=== PATIENT | male | born 1960 | race Caucasian/White ===

== ENCOUNTER → 2019-03-02 | Outpatient (CLI) | payer OTHER ==
[~2019-03-02] VITALS: Ht 177.8 cm; Wt 90.7 kg
[~2019-03-02] MED LIST: ALL DAY ALLERGY10 M3 PO; ASA81BEC PO; CINNAMON500 MG PO; GLUCOSAMINE &1 EACH PO; MILLTRIUM SENI1 EACH PO; OMEPRAZOLE 20 M20 M1 PO; ZESTRIL40 MG PO
--- NOTE | 2019-03-03 14:06 | PATH ---
[facility] [place] [address] PATHOLOGY RPT PROCEDURE Name: ARIANNE ROWELL Room #: REG NAOMIE Dung.#: [id number] Admission: 03/02/19 Date of : 60 Discharge: Report #: [id number] Path Case #: [id number] [facility] Accession Number: [id number] . 01 Material submitted: . PART A: stomach - BIOPSY OF GASTRITIS TO R/O H. PYLORI PART B: esophagus - BIOPSY OF DISTAL ESOPHAGUS TO R/O ALLEN'S. Modifiers: distal . 01 Clinical history: . Pre-OP DX: Reflux, Hx of Allen's Post-OP DX: Hiatal hernia, gastritis, questionable Allen's . 02 Diagnosis: A. Gastric mucosa, gastritis to rule out H. pylori, endoscopic biopsy: - Mild reactive gastropathy. - Negative for intestinal metaplasia or atrophy. - Negative for Helicobacter pylori (properly-controlled immunohistochemical stain performed). . B. Gastroesophageal mucosa, distal esophagus to rule out Allen's, endoscopic biopsy: - Gastric cardia mucosa with mild chronic inflammation. - Negative for intestinal metaplasia or dysplasia. - Squamous mucosa showing mild esophagitis. . (IUV:mml; 03/03/2019) QLM 03/03/2019 1018 Local . 02 Electronically signed: . Kelly Echevarria MD, Pathologist NPI- [id number] . 01 Gross description: . A. Received in formalin labeled "Arianne Rowell BX of gastritis to rule out H. pylori," are 4 segments of mcgrath soft tissue measuring 1.3 x 0.6 x 0.2 cm in aggregate dimensions and ranging from 0.3 to 0.7 cm in maximum dimension. The specimen is submitted entirely in cassette A1. . B. Received in formalin labeled "Arianne Rowell, BX of distal esophagus to rule out Allen's," are 6 segments of mcgrath soft tissue measuring 1.5 x 0.9 x 0.3 cm in aggregate dimensions and ranging from 0.3 to 0.5 cm in maximum dimension. The specimen is submitted entirely in cassette B1. (TSD; 03/02/2019) TOB/TOB 03/02/2019 1840 Local . 02 Pathologist provided ICD-10: [address] [address] PATHOLOGY RPT PROCEDURE Name: ARIANNE ROWELL [id number] Admission: 03/02/19 Date of : 60 Discharge: Report #: [id number] Path Case #: [id number] K31.9, K29.50 . 02 CPT . 940581, [id number], [id number] Specimen Comment: A courtesy copy of this report has been sent to Specimen Comment: [phone], , . Specimen Comment: Report sent to ,DR SIERRA / DR SARMIENTO Specimen Comment: A duplicate report has been generated due to demographic updates. Performed at: [address] [facility], [place] [id number] MD Oleg Singh MD Phone: [phone] Performed at: [address] [id number] MD Kelly Echevarria MD Phone: [phone]
--- NOTE | 2019-03-04 14:09 | P ---
[facility] [place] [address] PROCEDURE REPORT Name: ARIANNE LABOY Williams Room #: REG [facility]#: [id number] Admission: 03/02/19 Attend Phys: Porter Mackenzie MD Discharge: Date of : 60 Report #: [id number] THIS REPORT FOR: //name// CC: JAVAD Mackenzie DATE OF SERVICE: 03/02/2019 OUTPATIENT UPPER ENDOSCOPY REPORT BRIEF HISTORY: The patient is a 58-year-old male with a longstanding history of reflux disease dating back at least 20 years. He has been on Esomeprazole 20 mg daily and generally has good control of symptoms. He was told some 20 years ago that he had Mott esophagus. He has not had any followup with regards to that diagnosis. PREOPERATIVE DIAGNOSES: Reflux disease and history of Mott's esophagus. POSTOPERATIVE DIAGNOSES: 1. Mild erythematous antral gastritis. 2. Small, intermittently seen 2 cm sliding type hiatus hernia. 3. Question of 3 tongues of Mott mucosa of distal esophagus. MEDICATIONS: Deep sedation with propofol per anesthesia. SPECIMENS: 1. Biopsies of gastritis, rule out Helicobacter pylori. 2. Biopsies of distal esophagus, rule out Mott's esophagus. ESTIMATED BLOOD LOSS: 3 mL. PROCEDURE: EGD with biopsy. FINDINGS: Prior to propofol sedation, procedure of upper endoscopy was discussed with the patient as well as potential risks and its complications. He indicates he understands and desires to proceed. DESCRIPTION OF PROCEDURE: With the patient in left lateral decubitus position, the Zaldiva endoscope was inserted in the cervical esophagus under direct vision without difficulty. Examination of this organ through its entire style revealed normal esophageal mucosa down the squamocolumnar junction. The squamocolumnar junction was noted to be somewhat irregular. There were 3 potential tongues of Mott mucosa extending less than 2 cm into the distal esophagus. The mucosa with the tongues was flat. No strictures, masses or ulcerations or nodules were seen. Intermittently, a small 2 cm sliding type [facility] [address] [place] [address] PROCEDURE REPORT Name: ARIANNE LABOY Room #: REG [facility]#: [id number] Admission: 03/02/19 Attend Phys: Porter Mackenzie MD Discharge: Date of : 60 Report #: [id number] hiatus hernia was seen. The mucosa in the hernia was unremarkable. Multiple biopsies were taken of the possible Mott mucosa. The scope was advanced fully into the stomach, which was examined on end view as well as retroflexed views. There was erythema in the antrum. No ulcers or erosions were seen. Upon retroflexion, no mass lesions were seen. The pylorus, duodenal bulb, and postbulbar duodenal sweep were inspected and noted to be unremarkable. At that point, the scope was slowly withdrawn and careful circumferential views confirmed the above findings. Biopsies obtained of the gastritis. The patient tolerated the procedure well. CONDITION OF THE PATIENT UPON DISCHARGE: Following procedure, the patient was drowsy, arousable, conversant, and will be discharged home when fully ambulatory. INSTRUCTIONS TO THE PATIENT AND FAMILY AT THE TIME OF DISCHARGE: He has a questionable 3 tongues of potential Mott mucosa in the distal esophagus. We will follow up on biopsies and make further recommendations. If there is evidence of Mott mucosa and there was no evidence of dysplasia, suggest continued use of PPI and repeat biopsies in 3 years. However, if dysplasia is present, further evaluation or intervention may be needed. He will return to care of Javad Aguilar and return to see me as needed. <ELECTRONICALLY SIGNED> By: Porter Mackenzie MD 03/04/19 1409 0933 24 Porter Mackenzie MD /nt
== END | disposition home or self-care (01) ==
LOC: GI 08:12
DX: K21.0 Gastro-esophageal reflux disease with esophagitis (principal); K31.9 Disease of stomach and duodenum, unspecified; K29.50 Unspecified chronic gastritis without bleeding; K44.9 Diaphragmatic hernia without obstruction or gangrene; I10 Essential (primary) hypertension; F17.210 Nicotine dependence, cigarettes, uncomplicated; Z90.49 Acquired absence of other specified parts of digestive tract; Z98.890 Other specified postprocedural states; Z98.42 Cataract extraction status, left eye; Z79.899 Other long term (current) drug therapy; Z88.8 Allergy status to other drugs, medicaments and biological substances; Z79.82 Long term (current) use of aspirin
CPT/HCPCS: 62110; 62900